=== PATIENT | female | born 1940 | race Caucasian/White ===

== ENCOUNTER → 2017-01-05 | Outpatient (CLI) | payer MEDICARE, BC ==
--- NOTE | 2017-01-05 16:22 | BD ---
EXAMINATION TYPE: MG DEXA axial skeleton. DATE OF EXAM: 01/05/2017 COMPARISON: NONE CLINICAL HISTORY: Postmenopausal female. Height: 64 IN Weight: 256 LBS FRAX RISK QUESTIONS: Alcohol (3 or more units per day): NO Family History (Parent hip fracture): NO Glucocorticoids (More than 3mos): NO (Ex: prednisone, prednisolone, methylprednisolone, dexamethasone, and hydrocortisone). History of Fracture in Adulthood: NO Secondary Osteoporosis: 1. Type 1 Diabetes: NO 2. Hyperthyroidism: NO 3. Menopause before 45: NO 4. Malnutrition: NO 5. Chronic liver disease: NO Rheumatoid Arthritis: NO Current Tobacco Use: NO RISK FACTORS HISTORY OF: History of Wrist Fracture: YES LEFT When: 10 YEARS Active: Postmenopausal woman: AGE 57 Take estrogen and/or progesterone medications: NOT NOW How long: AGE 57 - 58 Lost more than 2 inches in height since high school: YES 4" MEDICATIONS: Thyroid Medications: YES Which medication: Levothyroxine How Long: AGE 57 Additional Medications: CALCIUM, VIT D, LEVOTHYROXINE, ATORVASTATIN, METROPROLOL, FUROSEMIDE, FERROUS SULFATE, SPIRONOLACTONE, WARFARIN, ASPIRIN, LOSARTIN EXAM MEASUREMENTS: Bone mineral densitometry was performed using the [employer] System. Bone mineral density as measured about the Lumbar spine is: ----- L1-L4(G/cm2): 1.052 T Score Values are as follows: ----- L2: -1.3 ----- L3: -1.9 ----- L4: 0.0 ----- L1-L4: -1.1 Bone mineral density BASELINE Bone mineral density about the R hip (g/cm2): 0.789 Bone mineral density about the L hip (g/cm2): 0.723 T Score values are as follows: -----R Neck: -1.8 -----L Neck: -2.3 -----R Total: -1.5 -----L Total: -1.5 Bone mineral density BASELINE IMPRESSION: Osteopenia (T Score between -2.5 and -1) as noted by T score values There is slightly increased risk of fracture and the patient may be considered for treatment. Re-Screen 2-5 years. NOTE: T-SCORE=SD OF THE YOUNG ADULT MEAN.
== END | disposition home or self-care (01) ==
LOC: RADBDWWP 12:46
PROVIDERS: ATTEND Internal Medicine Endocrinology, Diabetes & Metabolism
DX: M85.80 Other specified disorders of bone density and structure, unspecified site (principal); E03.9 Hypothyroidism, unspecified
CPT/HCPCS: 77080

== ENCOUNTER → 2017-01-05 | Outpatient (CLI) | payer MEDICARE, BC ==
--- NOTE | 2017-01-07 09:37 | MM ---
Reason for exam: screening (asymptomatic). Last mammogram was performed 19 years and 7 months ago. History: Patient is postmenopausal and is nulliparous. Physical Findings: A clinical breast exam by your physician is recommended on an annual basis and results should be correlated with mammographic findings. MG 3D Screening Mammo W/Cad Bilateral CC and MLO view(s) were taken. No prior studies available for comparison. The breast tissue is almost entirely fat. Finding: There are typically benign round calcifications in both breasts. There is no discrete abnormality. ASSESSMENT: Negative, BI-RAD 1 RECOMMENDATION: Routine screening mammogram of both breasts in 1 year.
== END | disposition home or self-care (01) ==
LOC: RADMAMWWP 12:41
PROVIDERS: ATTEND Family Medicine
DX: Z12.31 Encounter for screening mammogram for malignant neoplasm of breast (principal)
CPT/HCPCS: 77063; G0202

== ENCOUNTER 2018-04-19 06:47 | Day surgery (SDC) | payer MEDICARE, BC ==
[2018-04-14 16:14] VITALS: BMI 42.9
[2018-04-19] MEDS ORDERED: LACTATED RINGERS 1,000 ML IV SCH (06:56)
[2018-04-19] MEDS ORDERED: SODIUM CHLORIDE 0.9% 1,000 ML IV SCH (06:56)
[2018-04-19 07:15] VITALS: BP 169/74; PULSE 50; RESP 16; TEMP 97.5
--- NOTE | 2018-04-19 08:44 | PN ---
PROGRESS NOTE Mrs. May was here for elective cardioversion for atrial fibrillation. She was on amiodarone. However after arrival she was found to be in a sinus rhythm, asymptomatic. The cardioversion is therefore canceled. I will perform an echocardiogram to assess any improvement in LV function and she will be discharged today. Her vital signs are stable and physical exam was unremarkable. She will be seen by me in the office in the next few weeks. MMODL / IJN: [id number] /
[2018-04-19] MEDS ORDERED: SODIUM CHLORIDE 0.9% 500 ML IV ONE (09:31)
--- NOTE | 2018-04-19 12:39 | ECHOF ---
Referral Reason: MEASUREMENTS -------- HEIGHT: 165.1 cm WEIGHT: 118.8 kg BP: 169/74 RVIDd: 3.3 cm (< 3.3) IVSd: 1.4 cm (0.6 - 1.1) LVIDd: 5.0 cm (3.9 - 5.3) LVPWd: 1.2 cm (0.6 - 1.1) IVSs: 1.8 cm LVIDs: 3.8 cm LVPWs: 1.6 cm LA Diam: 4.7 cm (2.7 - 3.8) LAESV Index (A-L): 50.73 ml/m Ao Diam: 3.4 cm (2.0 - 3.7) AV Cusp: 2.2 cm (1.5 - 2.6) MV EXCURSION: 9.544 mm (> 18.000) MV EF SLOPE: 22 mm/s (70 - 150) EPSS: 1.2 cm MV E Angel Luis: 1.31 m/s MV DecT: 217 ms MV A Angel Luis: 0.61 m/s MV E/A Ratio: 2.14 RAP: 5.00 mmHg RVSP: 54.37 mmHg FINDINGS -------- Sinus rhythm. This was a technically difficult study with suboptimal views. The left ventricular size is normal. There is moderate concentric left ventricular hypertrophy. O verall left ventricular systolic function is mildly impaired with, an EF between 45 - 50 %. The right ventricle is mildly enlarged. LA is severely dilated >40 ml/m2 The right atrium was not well visualized. 3 ml of Lumason was utilized for enhancement of images. There is mild aortic valve sclerosis. There is mild aortic regurgitation. Mild mitral annular calcification present. Mild mitral regurgitation is present. Mild tricuspid regurgitation present. There is moderate pulmonary hypertension. The right ventric ular systolic pressure, as measured by Doppler, is 54.37mmHg. Moderate pulmonic regurgitation. The aortic root size is normal. IVC Not well visulized. There is no pericardial effusion. CONCLUSIONS -------- 1. Sinus rhythm. 2. This was a technically difficult study with suboptimal views. 3. The left ventricular size is normal. 4. There is moderate concentric left ventricular hypertrophy. 5. Overall left ventricular systolic function is mildly impaired with, an EF between 45 - 50 %. 6. The right ventricle is mildly enlarged. 7. LA is severely dilated >40 ml/m2 8. The right atrium was not well visualized. 9. 3 ml of Lumason was utilized for enhancement of images. 10. There is mild aortic valve sclerosis. 11. There is mild aortic regurgitation. 12. Mild mitral annular calcification present. 13. Mild mitral regurgitation is present. 14. Mild tricuspid regurgitation present. 15. There is moderate pulmonary hypertension. 16. The right ventricular systolic pressure, as measured by Doppler, is 54.37mmHg. 17. Moderate pulmonic regurgitation. 18. The aortic root size is normal. 19. IVC Not well visulized. 20. There is no pericardial effusion. REPATCHER: Whit Shin RDCS
== END 2018-04-19 09:47 | disposition home or self-care (01) ==
LOC: CATHCVL 06:47
PROVIDERS: ATTEND Internal Medicine Interventional Cardiology
DX: I08.8 Other rheumatic multiple valve diseases (principal); I48.1 Persistent atrial fibrillation; I11.0 Hypertensive heart disease with heart failure; I50.9 Heart failure, unspecified; E78.5 Hyperlipidemia, unspecified; E03.9 Hypothyroidism, unspecified; I42.8 Other cardiomyopathies; G47.33 Obstructive sleep apnea (adult) (pediatric); Z72.0 Tobacco use; Z79.01 Long term (current) use of anticoagulants; Z79.899 Other long term (current) drug therapy; Z79.890 Hormone replacement therapy
CPT/HCPCS: C8929; Q9950; 93306

== ENCOUNTER → 2018-07-11 | Outpatient (CLI) | payer MEDICARE, BC ==
[2018-07-11 11:18] LABS: HCT 43.2 % (34.0-46.0); Hypochromasia Slight; MCH 31.7 pg (25.0-35.0); MCHC 32.3 g/dL (31.0-37.0); Mean Platelet Volume 6.8; Platelet Count 205 k/uL (150-450); RBC 4.41 m/uL (3.80-5.40); WBC 6.7 k/uL (3.8-10.6)
[2018-07-11 17:44] LABS: Anion Gap 7.2 mmol/L (4.00-12.00); Carbon Dioxide 29.8 mmol/L (21.6-31.8); Potassium 4.5 mmol/L (3.5-5.5)
== END | disposition home or self-care (01) ==
LOC: LABWHC1 10:21
PROVIDERS: ATTEND Internal Medicine Clinical Cardiac Electrophysiology
DX: Z01.812 Encounter for preprocedural laboratory examination (principal); I48.1 Persistent atrial fibrillation; I42.8 Other cardiomyopathies
CPT/HCPCS: 36415; 80051; 82565; 82947; 84520; 85027

== ENCOUNTER → 2019-12-18 | Outpatient (CLI) | payer MEDICARE, BC ==
[2019-12-18 14:50] VITALS: RESP 16
--- NOTE | 2019-12-18 15:05 | P.BASOAP ---
Subjective Progress Note Date: 12/18/19 Principal diagnosis: Dysphagia Patient well-known to our service. Patient had previous lap band followed by sleeve gastrectomy. She developed a recurrent hiatal hernia following the sleeve gastrectomy. Has had intermittent episodes of dysphagia, heartburn, and vomiting. Patient has other cardiac issues as well. She has considered elective repair but has tried dietary modification instead. Intermittently she'll have episodes where she has increased symptoms. She said she went out to dinner this past Tuesday. Following that developed indigestion with intermittent vomiting and dysphagia. Says she had an episode of vomiting this morning after ample legs. Mild discomfort. Was hospitalized in August and had full cardiac workup including catheterization. Objective - Vital Signs Vital signs: Vital Signs Temp Pulse Resp 16 12/18/19 14:48 BP Pulse Ox - Exam Abdomen: Soft, nontender, nondistended Assessment/Plan (1) Dysphagia Narrative/Plan: Patient with acute onset dysphagia starting 4 days ago. Rule out occlusion secondary to food bolus. Will check esophagram at this time. Continue antiacids in the form of omeprazole and Carafate. Further recommendations to follow. Plan: Date: 12/18/19 Initial Weight: Initial BMI: Current Weight: Current BMI: Type of Surgery: Total Volume in Band: Previous Volume: Volume Removed: Volume Added: Band Size:
[2019-12-18 15:48] VITALS: BP 121/82; PULSE 84; TEMP 98.1; BMI 42.5
--- NOTE | 2019-12-18 16:12 | FL ---
EXAMINATION TYPE: FL barium swallow DATE OF EXAM: 12/18/2019 LIMITED UGI: CLINICAL HISTORY: History of lap band converted to gastric sleeve in 2015 with severe dysphagia over last 3 days. Lap band was originally placed around 2008. TECHNIQUE: Limited esophagram is performed utilizing 2 oz of liquid even hepatic. A total of 78 seco nds of fluoroscopic time was utilized during procedure. 30 spot images saved to PACS. COMPARISON: None. FINDINGS: The patient swallowed contrast without difficulty or delay. Esophageal peristalsis and mo tility are both satisfactory. There is moderate-sized fixed hiatal hernia containing some internal de bris. There is [id number] delayed flow from the fixed hiatal hernia into the stomach below diap hragm and through the proximal anastomosis into the gastric sleeve. There is similar mild to moderate delayed flow in the distal anastomosis into the pylorus and duodenal sweep. Proximal anastomosis rem ains below diaphragm. There is no evidence of contrast extravasation to suggest leak. Patient shows n o increased symptoms of nausea or vomiting. IMPRESSION: Moderate size hiatal hernia containing intraluminal debris. [id number] delay in henry w of contrast from the hiatal hernia into proximal stomach along with proximal and distal anastomosis of gastric sleeve.
== END | disposition home or self-care (01) ==
LOC: BARWHC3 14:12
PROVIDERS: ATTEND Surgery
DX: Z48.815 Encounter for surgical aftercare following surgery on the digestive system (principal); K44.9 Diaphragmatic hernia without obstruction or gangrene; Z68.42 Body mass index [BMI] 45.0-49.9, adult
CPT/HCPCS: 74220; G0463; 99201

== ENCOUNTER → 2020-01-15 | Outpatient (CLI) | payer MEDICARE, BC ==
[2020-01-15 15:02] VITALS: BP 121/74; PULSE 80; RESP 16; TEMP 98; BMI 44.2
--- NOTE | 2020-01-15 15:48 | P.BASOAP ---
Subjective Progress Note Date: 01/15/20 Principal diagnosis: Morbid obesity Patient returns for reevaluation. Last seen 3-4 weeks ago. Patient was hospitalized last week for CHF. After her last visit showing some retained food like material in her hiatal hernia/gastric pouch she went on a liquid diet for 2-3 days and had resolution of her symptoms approximate 2 days after the upper GI was performed. The patient has been very careful about what she is eating since then. No symptoms currently. Weight has gone up 10 pounds but her diuretics were decreased recently. Objective - Vital Signs Vital signs: Vital Signs Temp 98 F 01/15/20 15:00 Pulse 80 01/15/20 15:00 Resp 16 01/15/20 15:00 BP 121/74 01/15/20 15:00 Pulse Ox Intake & Output 01/14/20 01/15/20 01/15/20 18:59 06:59 18:59 Weight 120.656 kg - Exam Abdomen: Soft, nontender, nondistended Assessment/Plan (1) Dysphagia Narrative/Plan: 79-year-old female with dysphagia and reflux status post sleeve gastrectomy after previous lap band. Patient has issues with recurrent hiatal hernia containing the upper gastric pouch. Patient likely has some angulation there leading to intermittent dysphagia and obstruction of more dense foods. Surgical options have been discussed in detail the patient previously. At this time we will continue observation and patient will try to avoid foods that give her trouble. Follow-up April. Plan: Date: 01/15/20 Initial Weight: 137.183 kg Initial BMI: 50.3 Current Weight: 120.656 kg Current BMI: 44.2 Type of Surgery: Total Volume in Band: Previous Volume: Volume Removed: Volume Added: Band Size:
== END | disposition home or self-care (01) ==
LOC: BARWHC3 14:35
PROVIDERS: ATTEND Surgery
DX: Z48.815 Encounter for surgical aftercare following surgery on the digestive system (principal); R13.10 Dysphagia, unspecified; K44.9 Diaphragmatic hernia without obstruction or gangrene; Z98.84 Bariatric surgery status; E66.01 Morbid (severe) obesity due to excess calories; Z68.41 Body mass index [BMI] 40.0-44.9, adult
CPT/HCPCS: 99211

== ENCOUNTER → 2020-04-15 | Outpatient (CLI) | payer MEDICARE ==
[2020-04-15 14:19] VITALS: BP 128/75; PULSE 85; TEMP 97.8; BMI 44.7
--- NOTE | 2020-04-16 15:59 | PN ---
PROGRESS NOTE BARIATRIC PROGRESS NOTE: DATE OF SERVICE: 04/15/2020 INTERVAL HISTORY: This patient is a 79-year-old female known to our service from previous sleeve gastrectomy in 2015. The patient has had issues with intermittent dysphagia and epigastric pain with reflux secondary to what we believe is a recurrent hiatal hernia. The patient does better when she stays on a softer food diet. She has done well since last visit. No issues currently. She recently had her CPAP modified and is doing better and sleeping better. She has finished her course of Carafate. She remains on antacids. Her weight has stayed about the same. MMODL / IJN: [id number] /
--- NOTE | 2020-04-16 16:05 | PN ---
PROGRESS NOTE BARIATRIC PROGRESS NOTE - CONTINUATION: On physical exam, abdomen is soft, nontender, nondistended. IMPRESSION/PLAN: This is a 79-year-old female with recurrent hiatal hernia and previous sleeve gastrectomy. The patient's reflux has been improved. Continue antacid therapy. Continue dietary and exercise regimen. Follow up in 6 months. MMODL / IJN: [id number] /
== END | disposition home or self-care (01) ==
LOC: BARWHC3 13:27
PROVIDERS: ATTEND Surgery
DX: Z48.815 Encounter for surgical aftercare following surgery on the digestive system (principal); Z98.84 Bariatric surgery status
CPT/HCPCS: 99211

== ENCOUNTER → 2020-09-16 | Outpatient (CLI) | payer MEDICARE ==
[2020-09-16 14:21] VITALS: BP 107/73; PULSE 77; RESP 16; TEMP 97.7; BMI 41.4
--- NOTE | 2020-09-16 16:03 | P.BASOAP ---
Subjective Progress Note Date: 09/16/20 Principal diagnosis: Dysphagia Patient returns with complaints of dysphagia. She was vacationing in [place] and after the third day there started having difficulty tolerating most solid foods. Now taking in mostly liquids and softer foods. No significant pain. Patient takes antacids daily for recurrent hiatal hernia after sleeve gastrectomy. Patient also being evaluated for possible cardiac ablation. Recent CAT scan chest from [facility] showed small hiatal hernia. Objective - Vital Signs Vital signs: Vital Signs Temp 97.7 F 09/16/20 14:09 Pulse 77 09/16/20 14:09 Resp 16 09/16/20 14:09 BP 107/73 09/16/20 14:09 Pulse Ox Intake & Output 09/15/20 09/16/20 09/16/20 18:59 06:59 18:59 Weight 112.945 kg - Exam Abdomen: Soft, nontender, nondistended Assessment/Plan (1) Dysphagia Narrative/Plan: Patient with dysphagia after previous sleeve gastrectomy. The patient has had issues related to her recurrent hiatal hernia. We believe she has some tortuosity of the sleeve above the diaphragm and has had food trapped in there previously. She was sent for esophagram which was reviewed with the radiologist. No definite foreign body is seen. There does appear to be a narrowing at the GE junction itself causing some proximal esophageal dilation. Findings discussed with patient. We'll proceed with repeat upper endoscopy with possible dilation next week. This will also give us an opportunity to clearly define the location of the GE junction for upcoming ablation where BARAK will likely be performed concurrently. Plan: Date: 09/16/20 Initial Weight: 137.183 kg Initial BMI: 50.3 Current Weight: 112.945 kg Current BMI: 41.4 Type of Surgery: Total Volume in Band: Previous Volume: Volume Removed: Volume Added: Band Size:
== END ==
LOC: BARWHC3 13:49
PROVIDERS: ATTEND Surgery
DX: R13.10 Dysphagia, unspecified (principal); Z98.84 Bariatric surgery status; Z87.891 Personal history of nicotine dependence; Z88.8 Allergy status to other drugs, medicaments and biological substances
CPT/HCPCS: 74220; 99211

== ENCOUNTER → 2020-09-16 | Outpatient (CLI) | payer MEDICARE ==
--- NOTE | 2020-09-16 15:30 | FL ---
EXAMINATION TYPE: FL barium swallow DATE OF EXAM: 09/16/2020 COMPARISON: 12/18/2019 HISTORY: Dysphagia TECHNIQUE: A single contrast limited esophagram study is performed. Study is performed with barium FINDINGS: There is a moderate size hiatal hernia present. The esophagus empties into the hiatal herni a with severe hesitancy. Initial images demonstrate the widest opening. However, this area remains pe rsistently narrowed through multiple additional portions of the study and real-time observation. Hiatal hernia fills normally. There appears to be normal emptying into the gastric sleeve without sig nificant hesitancy. No free air is noted during this examination. IMPRESSIONS: 1. 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 2. Moderate-sized hiatal hernia, present previously. 3. No significant hesitancy passing from the hiatal hernia into the gastric sleeve. 4. Case was discussed with the referring surgeon by Dr. Perez by telephone at the time of prelimina ry interpretation approximately 1520 hours 09/16/2020
== END | disposition home or self-care (01) ==
LOC: RADFLMAIN 14:34
PROVIDERS: ATTEND Surgery
DX: K44.9 Diaphragmatic hernia without obstruction or gangrene (principal)
CPT/HCPCS: 74220

== ENCOUNTER 2020-09-30 10:27 | Day surgery (SDC) | payer MEDICARE ==
[2020-09-26 10:28] VITALS: BMI 42.9
[~2020-09-30 10:27] MED LIST: LACTATED RINGERS 1,000 ML IV SCH; LIDOCAINE 1% (10MG/ML) FOR IV START INTRADERMA PRN
[2020-09-30 11:12] VITALS: RESP 16; TEMP 97.1
[2020-09-30] MEDS ORDERED: ONDANSETRON 4 MG/2 ML VIAL IVP ONE (11:30)
[2020-09-30] MEDS ORDERED: ONDANSETRON 4 MG/2 ML VIAL ONE (11:31)
[2020-09-30] MEDS ORDERED: LIDOCAINE 1% INJ 10MG/ML (20 ML MDV) ONE (12:32)
[2020-09-30] MEDS ORDERED: PROPOFOL 10 MG/ML 20 ML VIAL IV ONE (12:32)
--- NOTE | 2020-09-30 12:35 | P.GSHP ---
History of Present Illness H&P Date: 09/30/20 Chief Complaint: Dysphagia Patient here today for upper endoscopy. She has had progressive complaints of dysphagia and reflux. History of known hiatal hernia after previous sleeve gastrectomy. Recent upper GI suggest possible distal esophageal stricture. Past Medical History Past Medical History: Atrial Fibrillation, Eye Disorder, GERD/Reflux, Hyperlipidemia, Hypertension, Osteoarthritis (OA), Pneumonia, Sleep Apnea/CPAP/BIPAP, Thyroid Disorder Additional Past Medical History / Comment(s): "Beginnings of Macular Degeneration." Uses CPAP. History of Any Multi-Drug Resistant Organisms: None Reported Past Surgical History: Bariatric Surgery, Heart Catheterization Additional Past Surgical History / Comment(s): LAP BAND, LAP BAND REMOVED, GASTRIC SLEEVE, LIPOMA REMOVED FROM BACK, CARDIOVERSION X3. Past Anesthesia/Blood Transfusion Reactions: No Reported Reaction Past Psychological History: No Psychological Hx Reported Smoking Status: Former smoker Past Alcohol Use History: None Reported Additional Past Alcohol Use History / Comment(s): STARTED SMOKING AT AGE 16, QUIT SMOKING AT AGE 48, SMOKED 1-2 PPD. Past Drug Use History: None Reported - Past Family History Mother Family Medical History: Cancer Medications and Allergies Home Medications Medication Instructions Recorded Confirmed Type Atorvastatin [Lipitor] 40 mg PO HS 02/28/14 09/26/20 History Amiodarone [Cordarone] 200 mg PO QAM 04/19/18 09/26/20 History Spironolactone 25 mg PO DAILY 07/25/18 09/26/20 History Apixaban [Eliquis] 2.5 mg PO BID 09/26/20 09/26/20 History Carvedilol [Coreg] 12.5 mg PO BID 09/26/20 09/26/20 History Cholecalciferol [Vitamin D3 (25 25 mcg PO DAILY 09/26/20 09/26/20 History Mcg = 1000 Iu)] Furosemide [Lasix] 40 mg PO BID 09/26/20 09/26/20 History Levothyroxine Sodium 88 mcg PO QAM 09/26/20 09/26/20 History Meclizine [Antivert] 12.5 mg PO BID PRN 09/26/20 09/26/20 History Multivitamins, Thera [Multivitamin 1 tab PO DAILY 09/26/20 09/30/20 History (formulary)] Omeprazole 20 mg PO DAILY 09/26/20 09/26/20 History Ondansetron HCl [Zofran] 4 mg PO Q6H PRN 09/26/20 09/26/20 History lisinopriL [Zestril] 2.5 mg PO DAILY 09/30/20 09/30/20 History Allergies Allergy/AdvReac Type Severity Reaction Status Date / Time dofetilide [From Tikosyn] Allergy Unknown Verified 09/30/20 11:13 rivaroxaban [From Xarelto] Allergy INTERNAL Verified 09/30/20 11:13 BLEEDING " antihistamines. Allergy Rapid Uncoded 09/30/20 11:13 Heart Rate Surgical - Exam Vital Signs Temp Pulse Resp BP Pulse Ox 97.1 F L 65 16 108/58 98 09/30/20 11:11 09/30/20 11:11 09/30/20 11:11 09/30/20 11:11 09/30/20 11:11 Physical exam: General: Well-developed, well-nourished HEENT: Normocephalic, sclerae nonicteric Abdomen: Nontender, nondistended Extremities: No edema Neuro: Alert and oriented Assessment and Plan (1) Dysphagia Narrative/Plan: Will proceed with upper endoscopy with possible dilation. Current Visit: No Status: Acute Code(s): R13.10 - DYSPHAGIA, UNSPECIFIED SNOMED Code(s): 63384873
--- NOTE | 2020-09-30 12:44 | P.PCN ---
Date of Procedure: 09/30/20 Procedure(s) Performed: Preoperative Dx: Dysphagia, hiatal hernia, GERD Postoperative Dx: Gastritis, hiatal hernia Procedure: EGD with Bx Anesthesia: Sedation Endoscopist: Dr. Nguyen Specimens: Antrum Endoscopic Procedure: The patient was on the endoscopy table in the left decubitus position. The Olympus gastroscope was inserted into the oropharynx and passed under direct visualization to the region of the third portion of the duodenum. From that point the scope was slowly withdrawn inspecting all dickerson rfaces carefully. There were no neoplastic inflammatory or polypoid lesions throughout the duodenum. The pylorus was widely patent. The stomach was carefully inspected. There was mild gastritis present. A biopsy of the antrum took place to rule out H. pylori. The patient sleeve appeared appropriately sized. The patient had evidence of a hiatal hernia with the GE junction present 3-4 cm above the diaphragmatic hiatus. The esophagus appeared normal in its entirety and no stricture was seen despite the recent upper GI. The patient was then taken to the recovery room in stable condition per anesthesia guidelines. Recommendations: Continue antiacid therapy. Await biopsy results.
[2020-09-30 13:32] VITALS: BP 109/75; PULSE 68
== END 2020-09-30 14:13 | disposition home or self-care (01) ==
LOC: ORWHC2ENDO 10:27
PROVIDERS: ATTEND Surgery
DX: K31.9 Disease of stomach and duodenum, unspecified (principal); K29.70 Gastritis, unspecified, without bleeding; K44.9 Diaphragmatic hernia without obstruction or gangrene; K21.9 Gastro-esophageal reflux disease without esophagitis; Z98.84 Bariatric surgery status; I48.91 Unspecified atrial fibrillation; E78.5 Hyperlipidemia, unspecified; I10 Essential (primary) hypertension; M19.90 Unspecified osteoarthritis, unspecified site; Z87.01 Personal history of pneumonia (recurrent); G47.30 Sleep apnea, unspecified; E07.9 Disorder of thyroid, unspecified; H35.30 Unspecified macular degeneration; Z98.890 Other specified postprocedural states; Z87.891 Personal history of nicotine dependence; Z80.9 Family history of malignant neoplasm, unspecified; Z79.01 Long term (current) use of anticoagulants; Z79.890 Hormone replacement therapy; Z79.899 Other long term (current) drug therapy; Z88.8 Allergy status to other drugs, medicaments and biological substances
CPT/HCPCS: 88305; 43239; J2405; J2001; J2704

== ENCOUNTER → 2020-12-09 | Outpatient (CLI) | payer MEDICARE ==
[2020-12-09 15:27] VITALS: BP 95/60; PULSE 76; TEMP 98.2; BMI 38.4
--- NOTE | 2020-12-09 16:38 | P.BASOAP ---
Subjective Progress Note Date: 12/09/20 Principal diagnosis: Dysphagia The patient last seen in September. She underwent upper endoscopy at that time. An esophagram suggested a possible stricture in the esophagus however her EGD results showed recurrent hiatal hernia but no other definite abnormalities and nothing that would suggest the degree of dysphagia the patient experiences. Patient states she is able to eat about 4 bites of solid food when she begins experiencing lower chest upper abdominal discomfort and fullness. Patient says she is usually miserable for several hours after this. She has worsening reflux after trying any solid foods. Because of that the patient has been on a liquid diet essentially for the last several weeks or even months. States she has lost 40 pounds in the last several months because of her ongoing dysphagia issues. Previous CAT scan chest showed hiatal hernia recurrence. Objective - Vital Signs Vital signs: Vital Signs Temp 98.2 F 12/09/20 15:16 Pulse 76 12/09/20 15:16 Resp BP 95/60 12/09/20 15:16 Pulse Ox Intake & Output 12/08/20 12/09/20 12/09/20 18:59 06:59 18:59 Weight 104.78 kg - Exam Abdomen: Soft, nontender, nondistended Assessment/Plan (1) Dysphagia Narrative/Plan: Patient unfortunately has had persistent dysphagia. Patient's hiatal hernia appears to be a major concerning factor but her symptoms are still more than would be expected. Consideration for repair hiatal hernia with possible conversion to gastric bypass discussed. We'll recheck out to [facility] where she has had some previous cardiac workup and ablations for their input regarding this complicated case. Plan: Date: 12/09/20 Initial Weight: 137.183 kg Initial BMI: 50.3 Current Weight: 104.78 kg Current BMI: 38.4 Type of Surgery: Total Volume in Band: Previous Volume: Volume Removed: Volume Added: Band Size:
== END | disposition home or self-care (01) ==
LOC: BARWHC3 14:05
PROVIDERS: ATTEND Surgery
DX: R13.10 Dysphagia, unspecified (principal); K44.9 Diaphragmatic hernia without obstruction or gangrene; Z88.1 Allergy status to other antibiotic agents; Z88.8 Allergy status to other drugs, medicaments and biological substances; Z87.891 Personal history of nicotine dependence
CPT/HCPCS: 99211

== ENCOUNTER → 2020-12-16 | Outpatient (CLI) | payer MEDICARE ==
--- NOTE | 2020-12-17 11:39 | MM ---
Reason for exam: screening (asymptomatic). Last mammogram was performed 3 years and 11 months ago. History: Patient is postmenopausal and is nulliparous. Physical Findings: A clinical breast exam by your physician is recommended on an annual basis and results should be correlated with mammographic findings. MG 3D Screening Mammo W/Cad Bilateral CC and MLO view(s) were taken. Prior study comparison: January 05, 2017, bilateral MG 3d screening mammo w/cad. May 28, 1997, bilateral diagnostic mammogram. There are scattered fibroglandular densities. No significant changes when compared with prior studies. ASSESSMENT: Benign, BI-RAD 2 RECOMMENDATION: Routine screening mammogram of both breasts in 1 year.
== END | disposition home or self-care (01) ==
LOC: RADMAMWWP 12:43
PROVIDERS: ATTEND Family Medicine
DX: Z12.31 Encounter for screening mammogram for malignant neoplasm of breast (principal); Z78.0 Asymptomatic menopausal state
CPT/HCPCS: 77063; 77067

== ENCOUNTER → 2021-06-30 | Outpatient (CLI) | payer MEDICARE ==
[2021-06-30 14:15] VITALS: BP 115/85; PULSE 82; TEMP 98; BMI 38.4
--- NOTE | 2021-06-30 14:52 | P.BASOAP ---
Subjective Progress Note Date: 06/30/21 Principal diagnosis: Dysphagia Patient returns for reevaluation. Since her last visit in December the patient has been seen at the [facility] bariatric clinic on numerous occasions. Patient has seen Dr. Peralta for evaluation. She has undergone manometry and upper GI. She has seen the dietitian on 2 occasions. She has also seen psychiatry there. Patient says that she was offered conversion to gastric bypass with repair of recurrent hiatal hernia. Patient says she is somewhat anxious about having the surgery performed particularly since the patient's symptoms of dysphagia and reflux have improved recently. Remains on twice daily PPI. Takes H2-ajit intermittently as well. Patient says she is tolerating fish, chicken salad and tuna salad, daily diet consisting of mostly soup. Objective - Vital Signs Vital signs: Vital Signs Temp 98 F 06/30/21 14:13 Pulse 82 06/30/21 14:13 Resp BP 115/85 06/30/21 14:13 Pulse Ox Intake & Output 06/29/21 06/30/21 06/30/21 18:59 06:59 18:59 Weight 104.78 kg - Exam Abdomen: Soft, nontender, nondistended Assessment/Plan (1) Morbid obesity Narrative/Plan: Patient doing better clinically at this time. Patient is somewhat reluctant to have the conversion performed at this time given her improved symptoms. Since the patient's symptoms have waxed and waned for the last year or 2 but keep recurring I did encourage the patient to consider following through with the surgery at this time. That being said the patient would like to wait a bit longer and I don't think that's unreasonable. She states she will notify [facility] area to team as to her decision to hold off on surgery for a bit longer. She will contact both my office and [facility] if symptoms recur. Continue antiacids daily for now. Plan: Date: 06/30/21 Initial Weight: 137.183 kg Initial BMI: 50.3 Current Weight: 104.78 kg Current BMI: 38.4 Type of Surgery: Total Volume in Band: Previous Volume: Volume Removed: Volume Added: Band Size:
== END ==
LOC: BARWHC3 13:49
PROVIDERS: ATTEND Surgery
DX: E66.01 Morbid (severe) obesity due to excess calories (principal); Z68.38 Body mass index [BMI] 38.0-38.9, adult; Z88.6 Allergy status to analgesic agent; Z88.8 Allergy status to other drugs, medicaments and biological substances; Z87.891 Personal history of nicotine dependence
CPT/HCPCS: 99211

== ENCOUNTER → 2022-03-30 | Outpatient (CLI) | payer MEDICARE ==
--- NOTE | 2022-03-30 14:09 | P.BASOAP ---
Subjective Progress Note Date: 03/30/22 Principal diagnosis: GERD Patient returns for recheck. She was last seen in June. Patient overall has been doing fairly well. She says she does get frustrated by her limited diet. Many of the solid foods lead to dysphagia, regurgitation, reflux, and some vomiting with mucous plug. She does however state she is able to eat cooked and often raw vegetables. She is able to eat salad at times. She can eat a hamburger with soft bread. She takes omeprazole and Tagamet as needed. Previously was seen at [facility] for possible sleeve to bypass conversion with repair hiatal hernia. Patient had decided to hold off previously since her symptoms had improved. Objective - Exam Abdomen: Soft, nontender, nondistended Assessment/Plan (1) Morbid obesity Narrative/Plan: Patient overall seems to be doing about the same or maybe slightly better. She is concerned about the risks and GI side effects with conversion to gastric bypass. Given the fact that the patient's symptoms are not worsening I think is reasonable to continue with observation. She will continue with as needed antiacid therapy. She will contact [facility] if she decides to proceed with sleeve conversion. Plan: Date: Initial Weight: 137.183 kg Initial BMI: Current Weight: Current BMI: Type of Surgery: Total Volume in Band: Previous Volume: Volume Removed: Volume Added: Band Size:
[2022-03-30 15:44] VITALS: BP 125/70; PULSE 68; TEMP 98; BMI 38.4
== END | disposition home or self-care (01) ==
LOC: BARWHC3 13:15
PROVIDERS: ATTEND Surgery
DX: E66.01 Morbid (severe) obesity due to excess calories (principal); R13.10 Dysphagia, unspecified; K21.9 Gastro-esophageal reflux disease without esophagitis; Z68.43 Body mass index [BMI] 50.0-59.9, adult
CPT/HCPCS: 99211

== ENCOUNTER → 2023-07-19 | Outpatient (CLI) | payer MEDICARE ==
[2023-07-19 15:22] VITALS: BP 123/84; PULSE 66; RESP 16; TEMP 98; BMI 40.9
--- NOTE | 2023-07-19 15:57 | P.BASOAP ---
Subjective Progress Note Date: 07/19/23 Principal diagnosis: Dysphagia 83-year-old female well-known to our service. Patient underwent previous laparoscopic sleeve gastrectomy with hiatal hernia repair. Patient had recurrent hiatal hernia causing intermittent obstruction. Patient has chronic dysphagia issues. Had been tolerating many solid foods up until about a month or so ago. She noticed a slight increase in her dysphagia. Still tolerates different fruits and vegetables but has difficulties with breads combined with meats frequently. Last EGD September 2021. Patient still on omeprazole and Tagamet. When she does have episodes of emesis that is usually mucus. Patient was previously seen at [facility] to discuss conversion to sleeve gastrectomy with repair recurrent hiatal hernia. Patient is not interested in that still at this time. Objective - Vital Signs Vital signs: Vital Signs Temp 98 F 07/19/23 15:18 Pulse 66 07/19/23 15:18 Resp 16 07/19/23 15:18 BP 123/84 07/19/23 15:18 Pulse Ox FiO2 Intake & Output 07/18/23 07/19/23 07/19/23 18:59 06:59 18:59 Weight 111.584 kg - Exam Abdomen: Soft, nontender, nondistended Assessment/Plan (1) Dysphagia Narrative/Plan: 83-year-old female with intermittent dysphagia. Patient seems to be getting by fairly well. She is not interested in any revisional bariatric surgery at this time. Continue antiacids. If symptoms persist or worsen we will repeat EGD. Recheck 3 months. Plan: Date: 07/19/23 Initial Weight: 137.183 kg Initial BMI: 50.3 Current Weight: 111.584 kg Current BMI: 40.9 Type of Surgery: Vertical Sleeve Gastrectomy Total Volume in Band: Previous Volume: Volume Removed: Volume Added: Band Size:
== END | disposition home or self-care (01) ==
LOC: BARWHC3 14:49
PROVIDERS: ATTEND Surgery
DX: E66.01 Morbid (severe) obesity due to excess calories (principal); R13.10 Dysphagia, unspecified; Z68.43 Body mass index [BMI] 50.0-59.9, adult; Z98.84 Bariatric surgery status; Z88.1 Allergy status to other antibiotic agents; Z91.018 Allergy to other foods; Z88.8 Allergy status to other drugs, medicaments and biological substances; Z87.891 Personal history of nicotine dependence
CPT/HCPCS: 99211

== ENCOUNTER → 2023-10-18 | Outpatient (CLI) | payer MEDICARE ==
[2023-10-18 14:13] VITALS: BP 141/78; PULSE 66; RESP 16; TEMP 97.8; BMI 41.4
--- NOTE | 2023-10-18 16:39 | P.BASOAP ---
Subjective Progress Note Date: 10/18/23 Principal diagnosis: Morbid obesity Patient returns for recheck. Last seen 3 months ago. Frequency of regurgitation improved. Heartburn improved. Seems like she is doing better she says. Still taking omeprazole daily and Tagamet as needed. Treated for UTI recently. 3 pound increase in weight. Objective - Vital Signs Vital signs: Vital Signs Temp 97.8 F 10/18/23 14:11 Pulse 66 10/18/23 14:11 Resp 16 10/18/23 14:11 BP 141/78 10/18/23 14:11 Pulse Ox FiO2 Intake & Output 10/17/23 10/18/23 10/18/23 18:59 06:59 18:59 Weight 112.945 kg - Exam Abdomen: Soft, nontender, nondistended Assessment/Plan (1) Morbid obesity Narrative/Plan: 83-year-old female doing fairly well with current weight loss regimen. Continue modified diet given patient's recurrent hiatal hernia and frequent obstruction. Continue increasing activity now that the weather is improved. Recheck 6 mo nths. Plan: Date: 10/18/23 Initial Weight: 137.183 kg Initial BMI: 50.3 Current Weight: 112.945 kg Current BMI: 41.4 Type of Surgery: Vertical Sleeve Gastrectomy Total Volume in Band: Previous Volume: Volume Removed: Volume Added: Band Size:
== END ==
LOC: BARWHC3 13:49
PROVIDERS: ATTEND Surgery
DX: E66.01 Morbid (severe) obesity due to excess calories (principal); K46.9 Unspecified abdominal hernia without obstruction or gangrene; Z71.3 Dietary counseling and surveillance; Z90.3 Acquired absence of stomach [part of]; Z88.8 Allergy status to other drugs, medicaments and biological substances; Z87.891 Personal history of nicotine dependence; Z68.41 Body mass index [BMI] 40.0-44.9, adult
CPT/HCPCS: 99211

== ENCOUNTER → 2024-01-17 | Outpatient (CLI) | payer MEDICARE ==
[2024-01-17 13:53] VITALS: BP 103/67; PULSE 73; RESP 16; TEMP 97.5; BMI 39.9
--- NOTE | 2024-01-17 14:05 | P.BASOAP ---
Subjective Progress Note Date: 01/17/24 Principal diagnosis: GERD, vomiting 83-year-old female known to our service. Last seen in October. Over the last 5 days patient has had increased dysphagia symptoms. Takes omeprazole every morning and Tagamet as needed. She was started on Carafate with maybe slight improvement. Patient says she is only able to tolerate soup, protein bars, liquids. Patient says about an hour after eating she will develop mucousy emesis with sometimes food material as well. Patient has episodes like this periodically but this is the first 1 in a while and seems to be worse. Last EGD September 2020. Patient with known hiatal hernia after prior sleeve gastrectomy. Objective - Vital Signs Vital signs: Vital Signs Temp 97.5 F L 01/17/24 13:50 Pulse 73 01/17/24 13:50 Resp 16 01/17/24 13:50 BP 103/67 01/17/24 13:50 Pulse Ox FiO2 Intake & Output 01/16/24 01/17/24 01/17/24 18:59 06:59 18:59 Weight 108.862 kg - Exam Abdomen: Soft, nontender, nondistended Assessment/Plan (1) GERD (gastroesophageal reflux disease) Narrative/Plan: 83-year-old female with worsening reflux and vomiting. Will proceed with upper endoscopy next week. Continue antiacids. Plan: Date: 01/17/24 Initial Weight: 137.183 kg Initial BMI: 50.3 Current Weight: 108.862 kg Current BMI: 39.9 Type of Surgery: Total Volume in Band: Previous Volume: Volume Removed: Volume Added: Band Size:
== END ==
LOC: BARWHC3 13:43
PROVIDERS: ATTEND Surgery
CPT/HCPCS: 99211

== ENCOUNTER 2024-01-24 13:40 | Day surgery (SDC) | payer MEDICARE ==
[2024-01-19 14:56] VITALS: BMI 39.9
[2024-01-24 14:12] VITALS: TEMP 96.7
[2024-01-24] MEDS: LACTATED RINGERS 1,000 ML IV SCH (14:20)
[2024-01-24] MEDS: IV FLUID CONTINUATION 1,000 ML IV ONE (14:21)
[2024-01-24] MEDS ORDERED: PROPOFOL 10 MG/ML 20 ML VIAL IV ONE (14:46)
--- NOTE | 2024-01-24 14:48 | P.GSHP ---
History of Present Illness H&P Date: 01/24/24 Chief Complaint: GERD 83-year-old female with history of previous sleeve gastrectomy, lap band, hiatal hernia repair. Patient with known recurrent hiatal hernia. Patient was seen in the bariatric clinic last week. Patient complains of worsening nausea and vomiting issues.'s chronic heartburn. Past Medical History Past Medical History: Atrial Fibrillation, Eye Disorder, GERD/Reflux, Hyperlipidemia, Osteoarthritis (OA), Pneumonia, Thyroid Disorder Additional Past Medical History / Comment(s): "Beginnings of Macular Degeneration." History of Any Multi-Drug Resistant Organisms: None Reported Past Surgical History: Bariatric Surgery, Heart Catheterization Additional Past Surgical History / Comment(s): LAP BAND, LAP BAND REMOVED, GASTRIC SLEEVE, LIPOMA REMOVED FROM BACK, CARDIOVERSION X3. Past Anesthesia/Blood Transfusion Reactions: No Reported Reaction Smoking Status: Former smoker - Past Family History Mother Family Medical History: Cancer Additional Family Medical History / Comment(s): Colon Medications and Allergies Home Medications Medication Instructions Recorded Confirmed Type Atorvastatin [Lipitor] 40 mg PO HS 02/28/14 01/19/24 History Spironolactone 25 mg PO DAILY 07/25/18 01/19/24 History Apixaban [Eliquis] 5 mg PO BID 09/26/20 01/19/24 History Cholecalciferol [Vitamin D3 (25 25 mcg PO DAILY 09/26/20 01/19/24 History Mcg = 1000 Iu)] Levothyroxine Sodium 88 mcg PO QAM 09/26/20 01/19/24 History Meclizine [Antivert] 12.5 mg PO BID PRN 09/26/20 01/19/24 History Omeprazole 40 mg PO BID 09/26/20 01/19/24 History carvediloL [Coreg] 12.5 mg PO BID 09/26/20 01/19/24 History Amiodarone [Cordarone] 200 mg PO Q2D 01/19/24 01/19/24 History Sucralfate [Carafate] 1 gm PO DAILY 01/19/24 01/19/24 History Vit C/E/Zn/Coppr/Lutein/Zeaxan 1 each PO DAILY 01/19/24 01/19/24 History [Preservision Areds 2 Softgel] Allergies Allergy/AdvReac Type Severity Reaction Status Date / Time dofetilide [From Tikosyn] Allergy Unknown Verified 01/24/24 14:06 rivaroxaban [From Xarelto] Allergy INTERNAL Verified 01/24/24 14:06 BLEEDING " antihistamines. Allergy Rapid Uncoded 01/24/24 14:06 Heart Rate Surgical - Exam Vital Signs Temp Pulse Resp BP Pulse Ox 96.7 F L 60 16 180/72 100 01/24/24 14:08 01/24/24 14:08 01/24/24 14:08 01/24/24 14:08 01/24/24 14:08 Physical exam: General: Well-developed, well-nourished HEENT: Normocephalic, sclerae nonicteric Abdomen: Nontender, nondistended Extremities: No edema Neuro: Alert and oriented Assessment and Plan (1) GERD (gastroesophageal reflux disease) Narrative/Plan: Will proceed with upper endoscopy at this time. Current Visit: No Status: Acute Code(s): K21.9 - GASTRO-ESOPHAGEAL REFLUX DISEASE WITHOUT ESOPHAGITIS SNOMED Code(s): 863114200
--- NOTE | 2024-01-24 14:59 | P.PCN ---
Date of Procedure: 01/24/24 Procedure(s) Performed: Preoperative Dx: GERD, vomiting Postoperative Dx: Mild gastritis, hiatal hernia Procedure: EGD with Bx Anesthesia: Sedation Endoscopist: Dr. Nguyen Specimens: Pylorus, antrum Endoscopic Procedure: The patient was on the endoscopy table in the left decubitus position. The Olympus gastroscope was inserted into the oropharynx and passed under direct visualization to the region of the third portion of the duodenum. From that point the scope was slowly withdrawn inspecting all surf aces carefully. There were no neoplastic inflammatory or polypoid lesions throughout the duodenum. The pylorus was widely patent. There was mild plaque like discoloration of the pylorus itself. This did not appear to be inflamed. A biopsy of the pylorus took place. Following that a biopsy of the antrum took place. There was mild gastritis present. No retroflexion took place. Staple line was well-healed. The diaphragmatic hiatus was identified and a portion of the sleeve was present proximal to the diaphragmatic hiatus. The GE junction was present 3 to 4 cm proximal to the diaphragm. Minimal inflammatory changes within the stomach that was above the diaphragm was noted. No ulcerations. There was no signs of any esophagitis. The remainder of the esophagus appeared normal. The patient was then taken to the recovery room in stable condition per anesthesia guidelines. Recommendations: Resume diet. Continue antiacid therapy.
[2024-01-24 15:18] VITALS: BP 128/61; PULSE 59; RESP 16
== END 2024-01-24 15:38 ==
LOC: ORWHC2ENDO 13:40
PROVIDERS: ATTEND Surgery
DX: K29.50 Unspecified chronic gastritis without bleeding (principal); K21.00 Gastro-esophageal reflux disease with esophagitis, without bleeding; K44.9 Diaphragmatic hernia without obstruction or gangrene; K31.9 Disease of stomach and duodenum, unspecified; K31.A0 Gastric intestinal metaplasia, unspecified; I48.91 Unspecified atrial fibrillation; E78.5 Hyperlipidemia, unspecified; E07.9 Disorder of thyroid, unspecified; M19.90 Unspecified osteoarthritis, unspecified site; Z79.01 Long term (current) use of anticoagulants; Z79.890 Hormone replacement therapy; Z87.891 Personal history of nicotine dependence; Z98.84 Bariatric surgery status; Z79.899 Other long term (current) drug therapy
CPT/HCPCS: 43239; 88305

== ENCOUNTER → 2024-04-17 | Outpatient (CLI) | payer MEDICARE ==
[2024-04-17 13:24] VITALS: BP 116/79; PULSE 71; RESP 16; TEMP 98; BMI 41.5
--- NOTE | 2024-04-17 13:37 | P.BASOAP ---
Subjective Progress Note Date: 04/17/24 Principal diagnosis: GERD, vomiting Patient doing well today. She says since her last evaluation in January when she had an EGD her symptoms have improved. Only has had about 1-2 episodes since then of dysphagia and vomiting. No pain. Still taking omeprazole twice daily and Carafate 3 times per day. Objective - Vital Signs Vital signs: Vital Signs Temp 98 F 04/17/24 13:17 Pulse 71 04/17/24 13:17 Resp 16 04/17/24 13:17 BP 116/79 04/17/24 13:17 Pulse Ox FiO2 Intake & Output 04/16/24 04/17/24 04/17/24 18:59 06:59 18:59 Weight 113.398 kg - Exam Abdomen: Soft, nontender, nondistended Assessment/Plan (1) GERD (gastroesophageal reflux disease) Narrative/Plan: Patient doing well at this time. Episodes of dysphagia and vomiting have improved. Start decreasing Carafate frequency. Continue omeprazole twice daily. Recheck 6 months. Plan: Date: 04/17/24 Initial Weight: 137.183 kg Initial BMI: 50.3 Current Weight: 113.398 kg Current BMI: 41.5 Type of Surgery: Total Volume in Band: Previous Volume: Volume Removed: Volume Added: Band Size:
== END ==
LOC: BARWHC3 13:09
PROVIDERS: ATTEND Surgery
DX: E66.01 Morbid (severe) obesity due to excess calories (principal); Z68.41 Body mass index [BMI] 40.0-44.9, adult; K21.9 Gastro-esophageal reflux disease without esophagitis; R11.10 Vomiting, unspecified; Z87.891 Personal history of nicotine dependence; Z88.8 Allergy status to other drugs, medicaments and biological substances
CPT/HCPCS: 99211

== ENCOUNTER → 2024-10-16 | Outpatient (CLI) | payer MEDICARE ==
[2024-10-16 13:07] VITALS: BP 125/64; PULSE 71; RESP 16; TEMP 97.6; BMI 40.9
--- NOTE | 2024-10-16 13:22 | P.BASOAP ---
Subjective Progress Note Date: 10/16/24 Principal diagnosis: Morbid obesity Patient returns for recheck. Doing well since last seen in April. She has only had 1 episode of dysphagia and vomiting since then. Recently hospitalized for palpitations. Doing well now. Still on omeprazole 40 mg once daily. Doing chair aerobics now. 4 pounds down from since last visit. Objective - Vital Signs Vital signs: Vital Signs Temp 97.6 F 10/16/24 13:05 Pulse 71 10/16/24 13:05 Resp 16 10/16/24 13:05 BP 125/64 10/16/24 13:05 Pulse Ox FiO2 Intake & Output 10/15/24 10/16/24 10/16/24 18:59 06:59 18:59 Weight 111.584 kg - Exam Abdomen: Soft, nontender, nondistended Assessment/Plan (1) Morbid obesity Narrative/Plan: Patient doing well at this time. Continue dietary and exercise regimen. Recheck 1 year. Plan: Date: 10/16/24 Initial Weight: 137.183 kg Initial BMI: 50.3 Current Weight: 111.584 kg Current BMI: 40.9 Type of Surgery: Vertical Sleeve Gastrectomy Total Volume in Band: Previous Volume: Volume Removed: Volume Added: Band Size:
== END ==
LOC: BARWHC3 12:59
PROVIDERS: ATTEND Surgery
DX: E66.01 Morbid (severe) obesity due to excess calories (principal); Z87.891 Personal history of nicotine dependence; Z88.8 Allergy status to other drugs, medicaments and biological substances; Z68.41 Body mass index [BMI] 40.0-44.9, adult
CPT/HCPCS: 99211